=== PATIENT | female | born 1960 | race African-American/Black ===

== ENCOUNTER 2016-07-22 18:20 | Emergency (ER) | payer SELFPAY ==
--- NOTE | 2016-07-22 18:56 | ER Document Report ---
ED Medical Screen (RME) - General Chief Complaint: Back Pain Stated Complaint: BACK PAIN Mode of Arrival: Ambulatory Information source: Patient Notes: Patient complains of pain to right sided chest area for the past 7 months but reports pain and right breast area worsened 2 months ago. Patient reports cough since last month. hx: Fibrocystic breast I have greeted and performed a rapid initial assessment of this patient. A comprehensive ED assessment and evaluation of the patient, analysis of test results and completion of the medical decision making process will be conducted by additional ED providers. Physical Exam - Vital signs Vitals: Temp Pulse Resp BP Pulse Ox 98.1 F 84 20 155/109 H 99 07/22/16 18:36 07/22/16 18:36 07/22/16 18:36 07/22/16 18:36 07/22/16 18:36 - Respiratory Respiratory status: No respiratory distress Chest status: Tender, Pain on movement Breath sounds: Nonproductive cough Course - Vital Signs Vital signs: Temp Pulse Resp BP Pulse Ox 98.1 F 84 20 155/109 H 99 07/22/16 18:36 07/22/16 18:36 07/22/16 18:36 07/22/16 18:36 07/22/16 18:36
--- NOTE | 2016-07-22 19:59 | ER Document Report ---
ED General Pain - General Chief Complaint: Back Pain Stated Complaint: BACK PAIN Time seen by provider: 19:54 Mode of Arrival: Ambulatory Notes: This is a 56-year-old female that presents today with a right upper back right upper arm and right lateral breast pain. She states that the breast pain started 2 months ago. Denies any nipple discharge or erythema or swelling. Patient also states that December 2015 she was picking up her grandson and immediately felt right upper back pain and right upper arm pain. Since then the pain has not worsened but it is intermittent. Pain is worse in the morning after getting up. She denies shortness of breath fever chills nausea vomiting chest pain. TRAVEL OUTSIDE OF THE [place] IN LAST 30 DAYS: No Past Medical History - General Information source: Patient - Social History Smoking Status: Unknown if Ever Smoked Chew tobacco use (# tins/day): Yes Frequency of alcohol use: None Drug Abuse: None Family History: Reviewed & Not Pertinent Patient has suicidal ideation: No Patient has homicidal ideation: No Renal/ Medical History: Denies: Hx Peritoneal Dialysis Review of Systems - Review of Systems Constitutional: denies: Chills, Fever EENT: No symptoms reported Cardiovascular: No symptoms reported Respiratory: No symptoms reported Gastrointestinal: No symptoms reported Genitourinary: No symptoms reported Female Genitourinary: No symptoms reported Musculoskeletal: See HPI Skin: No symptoms reported Hematologic/Lymphatic: No symptoms reported Neurological/Psychological: No symptoms reported Physical Exam - Vital signs Vitals: Temp Pulse Resp BP Pulse Ox 98.1 F 84 20 155/109 H 99 07/22/16 18:36 07/22/16 18:36 07/22/16 18:36 07/22/16 18:36 07/22/16 18:36 - General General appearance: Appears well, Alert In distress: None - HEENT Head: Normocephalic, Atraumatic Eyes: Normal - Respiratory Respiratory status: No respiratory distress Breath sounds: Normal. No: Rales, Rhonchi, Stridor, Wheezing - Cardiovascular Rhythm: Regular Heart sounds: Normal auscultation - Abdominal Inspection: Normal Bowel sounds: Normal Tenderness: Nontender - Back Back: Tender - Right lower scapular region tenderness to deep palpation. No midline or paraspinal tenderness. - Extremities General upper extremity: Normal inspection, Nontender, Normal strength, Normal temperature General lower extremity: Normal inspection, Nontender, Normal strength, Normal temperature - Neurological Cognition: Normal. No: Confused - Psychological Associated symptoms: Normal affect, Normal mood - Skin Skin Temperature: Warm Skin Moisture: Dry Skin Color: Normal Course - Re-evaluation Re-evalutation: 07/22/16 19:57 Patient states that she works in a high stress occupation, and her father is in the hospital at [facility] due to a CVA. Radiograph images results were shared with the patient. She was given multiple opportunities to ask questions. She was advised to follow-up with primary care physician. - Vital Signs Vital signs: Temp Pulse Resp BP Pulse Ox 98.8 F 75 16 158/96 H 75 L 07/22/16 20:17 07/22/16 20:17 07/22/16 20:17 07/22/16 20:17 07/22/16 20:17 Discharge - Discharge Clinical Impression: Cough Condition: Good Disposition: HOME, SELF-CARE Additional Instructions: Return to the emergency department if symptoms worsen such as loss of consciousness, fever, chills, etc. follow-up with primary care physician as soon as possible.High Blood Pressure When your blood pressure was taken today it was elevated. Today's reading was 155/109. Pre-hypertension/Hypertension: The patient has been informed that they may have pre-hypertension or Hypertension based on a blood pressure reading in the emergency department. I recommend that the patient call the primary care provider listed on their dischargge instructions or a physician of their choice this wee to arrage follow up for further evaluation of possible pre- hypertension or Hypertension. Sometimes, stress or illness causes a temporary elevation of your blood pressure. We suggest that you get your blood pressure measured three more times during the next few days to see if this is more than a temporary abnormality. If your blood pressure is greater than 150/90 on each occasion, you must have treatment. Some simple things you can do to help are: If you have blood pressure medicine but aren't using it regularly, start taking it again. Get some aerobic exercise for at least 20 minutes on a daily basis. (See your doctor before beginning a new exercise program.) Eat a low-fat diet. Lose excess weight. Avoid salty foods and avoid adding salt to any of the foods you eat. Avoid diet pills, decongestants, "energizing" herbs, and other medicines that elevate blood pressure. If left untreated, hypertension greatly enhances your risk for developing heart disease and strokes. Please don't ignore this problem. Prescriptions: Albuterol Sulfate [Proair HFA Inhalation Aerosol 8.5 gm MDI] 2 puff IH Q4H PRN # 1 mdi PRN Reason: Methocarbamol [Robaxin 750 mg Tablet] 750 mg PO Q6 PRN #7 tablet PRN Reason: Referrals: [facility] [Provider Group] - Follow up as needed
[2016-07-22 20:19] VITALS: BP 158/96
== END 2016-07-22 20:19 | disposition home or self-care (01) ==
LOC: ER 18:20
DX: R05 Cough (principal); M54.9 Dorsalgia, unspecified; M54.6 Pain in thoracic spine; N64.4 Mastodynia
CPT/HCPCS: 71020; 99283

== ENCOUNTER → 2016-09-18 | Outpatient (CLI) | payer OTHER | LOC: RAD 07:31 | PROVIDERS: ATTEND Family Medicine | DX: R22.31 Localized swelling, mass and lump, right upper limb (principal) | CPT/HCPCS: 71260; 82565 ==

== ENCOUNTER → 2016-10-02 | Outpatient (CLI) | payer OTHER | LOC: RAD 10:39 | PROVIDERS: ATTEND Internal Medicine | DX: Z13.6 Encounter for screening for cardiovascular disorders (principal); C50.411 Malignant neoplasm of upper-outer quadrant of right female breast | CPT/HCPCS: 78472; A9560; Q9969 ==

== ENCOUNTER → 2016-10-05 | Outpatient (CLI) | payer SELFPAY | LOC: RAD 18:58 | PROVIDERS: ATTEND Internal Medicine | DX: C50.411 Malignant neoplasm of upper-outer quadrant of right female breast (principal); C77.3 Secondary and unspecified malignant neoplasm of axilla and upper limb lymph nodes | CPT/HCPCS: 78815; A9552 ==

== ENCOUNTER 2016-10-06 08:51 | Day surgery (SDC) | payer SELFPAY ==
[~2016-10-06 08:51] MED LIST: ACETAMINOPHEN 325 MG TABLET PO PRN; BACITRACIN INJ 50,000 UNIT VIAL IR PRN; CEFAZOLIN 1 GM/D5W RTU 1 GM/50 ML RTUPB IV PRN
[2016-10-06] MEDS ORDERED: OXYCODONE-ACETAMINOPHEN 5-325 MG TABLET ONE (10:49)
[2016-10-06] MEDS ORDERED: LIDOCAINE 0.5% INJ-PF (5 MG/ML) 50 ML SDV ONE (13:16)
[2016-10-06] MEDS ORDERED: MIDAZOLAM 2 MG/2 ML INJ ONE (13:34)
[2016-10-06] MEDS ORDERED: MORPHINE SULFATE 10 MG/ML INJ ONE (13:34)
--- NOTE | 2016-10-06 15:36 | Operative Report ---
Operative Report DATE OF SURGERY: 10/06/16 PREOPERATIVE DIAGNOSIS: Locally advanced right breast carcinoma POSTOPERATIVE DIAGNOSIS: Same OPERATION: 1. Ultrasound directed insertion of single-lumen Wivors-b-Qecc catheter into left internal jugular vein. 2. Interpretation of intraoperative fluoroscopy. 3. Limited central l venacavogram with interpretation SURGEON: BIJAN LEBLANC ANESTHESIA: Local TISSUE REMOVED OR ALTERED: None COMPLICATIONS: None ESTIMATED BLOOD LOSS: scant INTRAOPERATIVE FINDINGS: A below PROCEDURE: The patient was taken from the holding area to the cardiac catheterization lab she was placed in the recumbent position legs elevated arms tucked. The left neck and left chest wall were prepped and draped in sterile fashion Surgical plan surgical time out conducted. Using Ultrasound as a guide, the left neck was anesthetized with 1% lidocaine without epinephrine. A microneedle and wire were threaded into the left internal jugular vein. A suitable site for placement of the port in the subclavian position was chosen. The skin was again anesthetized with 1% lidocaine without epinephrine. A 3-1/2 cm incision was made in the skin electrocautery and blunt dissection, a port pocket was developed. The single lumen catheter was then tunneled between the 2 incisions after adequately anesthetizing the subcutaneous tissue with lidocaine. There is trimmed the appropriate length, then attached to the port along with the small plastic ring. Micro-wire was then switched to a 0.035 wire using to the introducer sheath. We then threaded the dilator introducer sheath over the larger wire, dilator and wire out, the threaded the single lumen catheter into the left internal jugular vein. Strip away sheath was removed leaving the catheter with the tip right at the superior vena cava junction. The catheter by fluoroscopic analysis. We then shot a full contrast, 5 mL venogram which demonstrated positioning of the catheter with rapid reflux into the atrium. The port was flushed with dilute heparinized saline, then with 3-0 Vicryl benzoin and Steri-Strips. Portable upright chest x-ray pending at time of dictation.
[2016-10-06 16:49] VITALS: BP 137/89
--- NOTE | 2016-10-09 07:38 | DISCHARGE SUMMARY E ---
Discharge Summary NAME: VALORIE MADSEN : 1960 AGE: 56Y ADMITTED: 10/06/2016 DISCHARGED: 10/06/2016 SUMMARY OF HOSPITALIZATION: The patient is a 56-year-old female with a history of metastatic inflammatory breast cancer who was brought to the hospital for port placement. The procedure was performed by Dr. Mckinney. She underwent left subclavian Infusaport catheter placement into the left internal jugular vein. She tolerated the procedure well without complications. FINAL DIAGNOSIS: Metastatic breast carcinoma status post left-sided port placement by Dr. Mckinney. DISPOSITION: The patient will be discharged home in the care of her family. Follow up with the Oncology team as previously scheduled. She may use the port. DICTATING PHYSICIAN: BIJAN MCKINNEY M.D. [id number] PHY#: [id number] ID: [id number] JOB#: [id number] ACCT: [id number] cc:BIJAN MCKINNEY M.D. >
== END 2016-10-06 17:00 | disposition home or self-care (01) ==
LOC: CCL 08:51
PROVIDERS: ATTEND Surgery
PROC: 05H633Z Insertion of Infusion Device into Left Subclavian Vein, Percutaneous Approach (ICD-10-PCS; principal; 2016-10-06)
DX: C50.411 Malignant neoplasm of upper-outer quadrant of right female breast (principal); E66.9 Obesity, unspecified; Z88.5 Allergy status to narcotic agent; Z68.29 Body mass index [BMI] 29.0-29.9, adult
CPT/HCPCS: 36561; 76937; 77001; C1788; C1752; Q9967; J2250; J3490 ×2; J0690; J2270; J1644

== ENCOUNTER 2016-10-09 08:06 | Outpatient (CLI) | payer SELFPAY ==
[~2016-10-09 08:06] MED LIST changes: -ACETAMINOPHEN 325 MG TABLET PO PRN; -BACITRACIN INJ 50,000 UNIT VIAL IR PRN; -CEFAZOLIN 1 GM/D5W RTU 1 GM/50 ML RTUPB IV PRN; +CYCLOPHOSPHAMIDE IV PRN; +DISPOSABLE IV PRN; +DOXORUBICIN HCL IV PRN; +FOSAPREPITANT DIMEGLUMINE 150 MG in NORMAL SALINE 150 ML IV PRN; +NORMAL SALINE 500 ML IV PRN; +NORMAL SALINE IV PRN; +ONDANSETRON HCL/PF 16 MG, DEXAMETHASONE SOD PHOSPHATE 10 MG in NORMAL SALINE 50 ML IV PRN
[2016-10-09 09:19] VITALS: BP 117/71
== END 2016-10-09 11:35 | disposition home or self-care (01) ==
LOC: II 08:06 → 5TH 08:08 → II 11:35
PROVIDERS: ATTEND Internal Medicine
PROC: 3E04305 Introduction of Other Antineoplastic into Central Vein, Percutaneous Approach (ICD-10-PCS; principal; 2016-10-09)
PROC: 3E04305 Introduction of Other Antineoplastic into Central Vein, Percutaneous Approach (ICD-10-PCS; 2016-10-09)
PROC: 3E043GC Introduction of Other Therapeutic Substance into Central Vein, Percutaneous Approach (ICD-10-PCS; 2016-10-09)
PROC: 3E043GC Introduction of Other Therapeutic Substance into Central Vein, Percutaneous Approach (ICD-10-PCS; 2016-10-09)
DX: C50.411 Malignant neoplasm of upper-outer quadrant of right female breast (principal); Z51.11 Encounter for antineoplastic chemotherapy
CPT/HCPCS: 96411; 96413; 96367; J9070; J9000; J2405; J7050; J3490; J1100; J1453; 96360; 96375; 96409

== ENCOUNTER 2016-10-10 11:40 | Outpatient (CLI) | payer SELFPAY ==
[~2016-10-10 11:40] MED LIST changes: -CYCLOPHOSPHAMIDE IV PRN; -DISPOSABLE IV PRN; -DOXORUBICIN HCL IV PRN; -FOSAPREPITANT DIMEGLUMINE 150 MG in NORMAL SALINE 150 ML IV PRN; -NORMAL SALINE 500 ML IV PRN; -NORMAL SALINE IV PRN; -ONDANSETRON HCL/PF 16 MG, DEXAMETHASONE SOD PHOSPHATE 10 MG in NORMAL SALINE 50 ML IV PRN; +PEGFILGRASTIM INJ 6 MG/0.6 ML DISP.SYRIN SUBCUT PRN
== END 2016-10-10 11:58 | disposition home or self-care (01) ==
LOC: II 11:40 → 5TH 11:45 → II 11:58
PROVIDERS: ATTEND Internal Medicine
PROC: 3E023GC Introduction of Other Therapeutic Substance into Muscle, Percutaneous Approach (ICD-10-PCS; principal; 2016-10-10)
DX: C50.411 Malignant neoplasm of upper-outer quadrant of right female breast (principal)
CPT/HCPCS: 96372; J2505

== ENCOUNTER 2016-10-18 09:58 | Emergency (ER) | payer OTHER ==
[2016-10-18] MEDS ORDERED: ASPIRIN 81 MG TABLET, CHEWABLE PO ONE (10:00)
--- NOTE | 2016-10-18 10:07 | ER Document Report ---
ED General - General Stated Complaint: CHEST PAIN Mode of Arrival: Medic Information source: Patient Notes: Patient presents emergency department with complaints of chest pressure with shortness of breath that started this morning. Patient reports she felt a little bit of pressure earlier today at work at [employer]. 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 She reports she became short of breath and the pressure went into her throat. She denies trauma, denies fever, nausea vomiting diarrhea. She denies past medical history of cardiac disease or high blood pressure. Patient does reports she was diagnosed with breast cancer on September 19. She had her first chemotherapy on October 09. She reports the cancer has spread up into her right rib and possibly lungs. She denies family history of cardiac disease. She reports pressure is almost gone. TRAVEL OUTSIDE OF THE [place] IN LAST 30 DAYS: No - HPI Onset: This morning Onset/Duration: Sudden Quality of pain: Pressure Severity: Mild Pain Level: 1 Associated symptoms: Shortness of breath Exacerbated by: Denies Relieved by: Denies Similar symptoms previously: No Recently seen / treated by doctor: No - Related Data Allergies/Adverse Reactions: codeine Allergy (Verified 10/03/16 15:13) Home Medications: Current Home Medications Amlodipine Besylate 10 mg PO DAILY 10/18/16 [History] Cephalexin Monohydrate [Keflex 500 mg Capsule] 500 mg PO TID 10/18/16 [History] Oxycodone HCl/Acetaminophen [Percocet 5-325 mg Tablet] 1 tab PO Q6H PRN [History] Promethazine HCl 25 mg PO Q6H PRN 10/18/16 [History] Past Medical History - General Information source: Patient - Social History Smoking Status: Unknown if Ever Smoked Cigarette use (# per day): No Frequency of alcohol use: None Drug Abuse: None Occupation: [employer] Family History: Malignancy - mom-pancreatic cancer, cousins breast cancers Patient has suicidal ideation: No Patient has homicidal ideation: No - Past Medical History Cardiac Medical History: Reports: Hx Hypertension Denies: Hx Coronary Artery Disease, Hx Heart Attack Pulmonary Medical History: Denies: Hx Asthma, Hx Bronchitis, Hx COPD, Hx Pneumonia Neurological Medical History: Denies: Hx Cerebrovascular Accident, Hx Seizures Renal/ Medical History: Denies: Hx Peritoneal Dialysis Malignancy Medical History: Reports: Hx Breast Cancer Musculoskeltal Medical History: Denies Hx Arthritis Past Surgical History: Reports: Hx Tubal Ligation - Immunizations Hx Diphtheria, Pertussis, Tetanus Vaccination: Yes Review of Systems - Review of Systems Notes: Review HPI for review of systems., All other systems negative Physical Exam - Vital signs Vitals: Pulse Ox 97 10/18/16 10:00 - Notes Notes: PHYSICAL EXAMINATION: GENERAL: Well-appearing and in no acute distress HEAD: Atraumatic, normocephalic. EYES: Pupils equal round extraocular movements intact, sclera anicteric, conjunctiva are normal. ENT: nares patent, oropharynx clear without exudates. Moist mucous membranes. NECK: Normal range of motion, supple without lymphadenopathy LUNGS: CTAB and equal. No wheezes rales or rhonchi. HEART: Regular rate and rhythm without murmurs ABDOMEN: Soft, no tenderness. No guarding, no rebound EXTREMITIES: Normal range of motion, no pitting edema. No cyanosis. NEUROLOGICAL: Cranial nerves grossly intact. Normal sensory/motor PSYCH: Normal mood, normal affect. SKIN: Warm, Dry, normal turgor, no rashes or lesions noted Course - Re-evaluation Re-evalutation: 10/18/16 11:13 Patient updated on plan of care pending labs she verbalized understanding. 10/18/16 11:15 WBC 2.9. Patient placed on reverse contact precautions. Consulted Dr Urena, he advised CTA for further evaluation of cp, mets. Pt updated on plan 10/18/16 13:[address] Lizandro jacobson with resultant CTA patient's labs. He reports this is expected. He reports patient had first round of chemotherapy with Neulasta on October 09 and typical 7-10 days afterwards patient will develop substernal chest pain. He advises discharge if second set of enzymes are negative. He also requested us to prescribe her with hydrocodone for pain. 10/18/16 15:41 Patient instructed on all she with Dr. Armas, labs, plan of care. Patient reports she feels fine and ready go home. Patient was instructed on the importance of follow-up with a primary care provider and Dr. Armas this week. - Vital Signs Vital signs: Temp Pulse Resp BP Pulse Ox 98.1 F 93 20 104/69 97 10/18/16 10:24 10/18/16 10:24 10/18/16 15:19 10/18/16 15:19 10/18/16 15:19 - Laboratory Result Diagrams: 10/18/16 10:20 10/18/16 10:20 Laboratory results interpreted by me: 10/18/16 10/18/16 10:20 10:20 WBC 2.5 L RBC 3.65 L Hgb 11.0 L Hct 31.8 L Seg Neuts % (Manual) 32 L Lymphocytes % (Manual) 46 H Eosinophils % (Manual) 7 H Abs Neuts (Manual) 0.9 L Potassium 3.1 L Glucose 123 H - Diagnostic Test Radiology reviewed: Image reviewed, Reports reviewed - RAD/ CHEST SINGLE VIEW IMPRESSION: No acute findings Diagnostic report text EXAM DESCRIPTION: CHEST SINGLE VIEW COMPLETED DATE/TIME: 10/18/2016 11:05 am REASON FOR STUDY: cp COMPARISON: CT chest 09/18/2016 EXAM PARAMETERS: NUMBER OF VIEWS: One view. TECHNIQUE: Single frontal radiographic view of the chest acquired. RADIATION DOSE: NA LIMITATIONS: None. FINDINGS: LUNGS AND PLEURA: No opacities, masses or pneumothorax. No pleural effusion. MEDIASTINUM AND HILAR STRUCTURES: No masses. Contour normal. HEART AND VASCULAR STRUCTURES: Heart normal in size. Normal vasculature. BONES: No acute findings. HARDWARE: Left-sided permanent central line tip superior vena cava. OTHER: No other significant finding. TECHNICAL DOCUMENTATION: JOB ID: [id number] RAD/CHEST SINGLE VIEW IMPRESSION: No acute findings - EKG Interpretation by Me EKG shows normal: Sinus rhythm Rate: Normal Discharge - Discharge Clinical Impression: Chest pain Condition: Stable Disposition: HOME, SELF-CARE Instructions: Chest Pain of Unclear Cause ([facility]), Oral Narcotic Medication ([facility]) , Family Physicians / Practices Additional Instructions: *You have been evaluated for chest pain *Take medication as prescribed for pain *Follow up with a primary care provider within one week *Follow up with Dr Armas within one week *Return to ED for worsening condition, changes, needs *Return to ED if not better in 24 hours Prescriptions: Hydrocodone/Acetaminophen [Horicon 5-325 Tablet] 1 each PO QID #15 tablet Forms: Return to Work Referrals: SUJATHA BURNS MD [Primary Care Provider] - Follow up in 3-5 days
[2016-10-18 10:36] LABS: HEMATOCRIT 31.8 % (36.0-47.0); HGB HCT DIFFERENCE 1.2; MEAN CORPUSCULAR HEMOGLOBIN 30.2 pg (27.0-33.4); MEAN CORPUSCULAR HGB CONC 34.6 g/dL (32.0-36.0); MEAN CORPUSCULAR VOLUME 87 fl (80-97); RED BLOOD COUNT 3.65 10^6/uL (3.72-5.28); RED CELL DISTRIBUTION WIDTH 13.8 % (11.5-14.0); WHITE BLOOD COUNT 2.5 10^3/uL (4.0-10.5)
[2016-10-18 10:54] LABS: ALANINE AMINOTRANSFERASE 23 U/L (9-52); ALKALINE PHOSPHATASE 94 U/L (38-126); ANION GAP 15 (5-19); ASPARTATE AMINO TRANSFERASE 17 U/L (14-36); BILIRUBIN,DIRECT 0.2 mg/dL (0.0-0.4); BILIRUBIN,TOTAL 0.3 mg/dL (0.2-1.3); BLOOD UREA NITROGEN 13 mg/dL (7-20); CALCIUM 9.8 mg/dL (8.4-10.2); CARBON DIOXIDE 23 mmol/L (22-30); CHLORIDE 105 mmol/L (98-107); CREATINE KINASE 79 U/L (30-135); CREATININE RESULT 0.65 mg/dL (0.52-1.25); GLUCOSE 123 mg/dL (75-110); POTASSIUM 3.1 mmol/L (3.6-5.0); SODIUM 143.3 mmol/L (137-145); TOTAL PROTEIN 7.4 g/dL (6.3-8.2)
[2016-10-18 11:01] LABS: BAND NEUTROPHILS % (MANUAL) 5 % (3-5); BASOPHILS % (MANUAL) 0 % (0-2); EOSINOPHILS % (MANUAL) 7 % (0-6); LYMPHOCYTES % (MANUAL) 46 % (13-45); TOTAL CELLS COUNTED 100
[2016-10-18 11:02] LABS: TOXIC GRANULATION SLIGHT
[2016-10-18 11:03] LABS: HYPOCHROMASIA SLIGHT; POLYCHROMASIA SLIGHT; ROULEAUX 1+; TOXIC VACUOLATION PRESENT
[2016-10-18 11:08] LABS: CREATINE KINASE MB < 0.22 ng/mL (<4.55); TROPONIN I < 0.012 ng/mL
[2016-10-18 15:21] VITALS: BP 104/69
--- NOTE | 2016-10-18 18:01 | EKG REPORT ---
SEVERITY:- NORMAL ECG - SINUS RHYTHM : Confirmed by: Steven Gusman MD 18-Oct-2016 18:00:52
== END 2016-10-18 15:56 | disposition home or self-care (01) ==
LOC: ER 09:58
DX: R07.9 Chest pain, unspecified (principal); R06.02 Shortness of breath; C50.919 Malignant neoplasm of unspecified site of unspecified female breast; Z79.899 Other long term (current) drug therapy
CPT/HCPCS: 36415; 71010; 71275; 80053; 82550; 82553; 84484; 85025; 93005; 93010; 99285

== ENCOUNTER 2016-10-30 10:01 | Outpatient (CLI) | payer MEDICAID, OTHER ==
[~2016-10-30 10:01] MED LIST changes: +CYCLOPHOSPHAMIDE IV PRN; +DISPOSABLE IV PRN; +DOXORUBICIN HCL IV PRN; +FOSAPREPITANT DIMEGLUMINE 150 MG in NORMAL SALINE 150 ML IV PRN; +NORMAL SALINE 500 ML IV PRN; +NORMAL SALINE IV PRN; +ONDANSETRON HCL/PF 16 MG, DEXAMETHASONE SOD PHOSPHATE 10 MG in NORMAL SALINE 50 ML IV PRN; -PEGFILGRASTIM INJ 6 MG/0.6 ML DISP.SYRIN SUBCUT PRN
[2016-10-30 10:17] VITALS: BP 133/116
== END 2016-10-30 12:58 | disposition home or self-care (01) ==
LOC: II 10:01 → 5TH 10:08 → II 12:58
PROVIDERS: ATTEND Internal Medicine
PROC: 3E04305 Introduction of Other Antineoplastic into Central Vein, Percutaneous Approach (ICD-10-PCS; principal; 2016-10-30)
PROC: 3E043GC Introduction of Other Therapeutic Substance into Central Vein, Percutaneous Approach (ICD-10-PCS; 2016-10-30)
DX: Z51.11 Encounter for antineoplastic chemotherapy (principal); C50.411 Malignant neoplasm of upper-outer quadrant of right female breast
CPT/HCPCS: 96413; 96367; 96361; 96417; J9070; J9000; J2405; J7050; J3490; J1100; J1453; 96360; 96374; 96411

== ENCOUNTER → 2016-10-30 | Outpatient (CLI) | payer MEDICAID ==
[2016-10-30 11:16] LABS: ALANINE AMINOTRANSFERASE 26 U/L (9-52); ALKALINE PHOSPHATASE 97 U/L (38-126); ANION GAP 14 (5-19); ASPARTATE AMINO TRANSFERASE 21 U/L (14-36); BILIRUBIN,DIRECT 0.4 mg/dL (0.0-0.4); BILIRUBIN,TOTAL 0.6 mg/dL (0.2-1.3); BLOOD UREA NITROGEN 9 mg/dL (7-20); CALCIUM 9.9 mg/dL (8.4-10.2); CARBON DIOXIDE 26 mmol/L (22-30); CHLORIDE 99 mmol/L (98-107); CREATININE RESULT 0.77 mg/dL (0.52-1.25); GLUCOSE 177 mg/dL (75-110); POTASSIUM 4.6 mmol/L (3.6-5.0); TOTAL PROTEIN 7.9 g/dL (6.3-8.2)
== END ==
LOC: LAB 10:51
PROVIDERS: ATTEND Internal Medicine
DX: C50.411 Malignant neoplasm of upper-outer quadrant of right female breast (principal)
CPT/HCPCS: 80053

== ENCOUNTER 2016-10-31 12:37 | Outpatient (CLI) | payer OTHER ==
[~2016-10-31 12:37] MED LIST changes: -CYCLOPHOSPHAMIDE IV PRN; -DISPOSABLE IV PRN; -DOXORUBICIN HCL IV PRN; -FOSAPREPITANT DIMEGLUMINE 150 MG in NORMAL SALINE 150 ML IV PRN; -NORMAL SALINE 500 ML IV PRN; -NORMAL SALINE IV PRN; -ONDANSETRON HCL/PF 16 MG, DEXAMETHASONE SOD PHOSPHATE 10 MG in NORMAL SALINE 50 ML IV PRN; +PEGFILGRASTIM INJ 6 MG/0.6 ML DISP.SYRIN SUBCUT PRN
[2016-10-31 12:50] VITALS: BP 122/78
== END 2016-10-31 12:53 | disposition home or self-care (01) ==
LOC: II 12:37
PROVIDERS: ATTEND Internal Medicine
PROC: 3E013GC Introduction of Other Therapeutic Substance into Subcutaneous Tissue, Percutaneous Approach (ICD-10-PCS; principal; 2016-10-31)
DX: Z76.89 Persons encountering health services in other specified circumstances (principal); C50.411 Malignant neoplasm of upper-outer quadrant of right female breast
CPT/HCPCS: 96372; J2505

== ENCOUNTER 2016-11-20 09:23 | Outpatient (CLI) | payer MEDICAID ==
[~2016-11-20 09:23] MED LIST changes: +CYCLOPHOSPHAMIDE IV PRN; +DISPOSABLE IV PRN; +DOXORUBICIN HCL IV PRN; +FOSAPREPITANT DIMEGLUMINE 150 MG in NORMAL SALINE 150 ML IV PRN; +NORMAL SALINE 500 ML IV PRN; +NORMAL SALINE IV PRN; +ONDANSETRON HCL/PF 16 MG, DEXAMETHASONE SOD PHOSPHATE 10 MG in NORMAL SALINE 50 ML IV PRN; -PEGFILGRASTIM INJ 6 MG/0.6 ML DISP.SYRIN SUBCUT PRN
[2016-11-20 09:44] VITALS: BP 114/70
== END 2016-11-20 13:20 | disposition home or self-care (01) ==
LOC: II 09:23 → 5TH 10:03 → II 13:20
PROVIDERS: ATTEND Internal Medicine
PROC: 3E043GC Introduction of Other Therapeutic Substance into Central Vein, Percutaneous Approach (ICD-10-PCS; principal; 2016-11-20)
PROC: 3E04305 Introduction of Other Antineoplastic into Central Vein, Percutaneous Approach (ICD-10-PCS; 2016-11-20)
DX: Z51.11 Encounter for antineoplastic chemotherapy (principal); C50.411 Malignant neoplasm of upper-outer quadrant of right female breast
CPT/HCPCS: 96409; 96413; 96367; 96375; 36598; J9070; J9000; J2405; J7050; J3490; J1100; J1453; 96411

== ENCOUNTER 2016-11-21 13:01 | Outpatient (CLI) | payer MEDICAID ==
[~2016-11-21 13:01] MED LIST changes: -CYCLOPHOSPHAMIDE IV PRN; -DISPOSABLE IV PRN; -DOXORUBICIN HCL IV PRN; -FOSAPREPITANT DIMEGLUMINE 150 MG in NORMAL SALINE 150 ML IV PRN; -NORMAL SALINE 500 ML IV PRN; -NORMAL SALINE IV PRN; -ONDANSETRON HCL/PF 16 MG, DEXAMETHASONE SOD PHOSPHATE 10 MG in NORMAL SALINE 50 ML IV PRN; +PEGFILGRASTIM INJ 6 MG/0.6 ML DISP.SYRIN SUBCUT PRN
== END 2016-11-21 13:25 | disposition home or self-care (01) ==
LOC: II 13:01 → 5TH 13:06 → II 13:25
PROVIDERS: ATTEND Internal Medicine
PROC: 3E013GC Introduction of Other Therapeutic Substance into Subcutaneous Tissue, Percutaneous Approach (ICD-10-PCS; principal; 2016-11-21)
DX: Z76.89 Persons encountering health services in other specified circumstances (principal); C50.411 Malignant neoplasm of upper-outer quadrant of right female breast
CPT/HCPCS: 96372; J2505

== ENCOUNTER → 2017-03-31 | Outpatient (CLI) | payer MEDICAID ==
--- NOTE | 2017-03-31 13:08 | RADIOLOGY REPORT (SQ) ---
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 PET scan dated 10/05/2016. TECHNIQUE: CT scan of the chest performed using helical scanning technique with dynamic intravenous contrast injection. Images reviewed with lung, soft tissue and bone windows. Reconstructed coronal and sagittal MPR images reviewed. All images stored on PACS. All CT scanners at this facility use dose modulation, iterative reconstruction, and/or weight based d osing when appropriate to reduce radiation dose to as low as reasonably achievable (ALARA). [facility]: Dose Right [facility]: CareDose [facility]: Dose Right [facility]: Teradose 4D [facility]: [employer] CONTRAST TYPE AND DOSE: 91 mL Isovue 370- low osmolar. RENAL FUNCTION: BUN 11 creatinine 0.8. RADIATION DOSE: . LIMITATIONS: None. FINDINGS: LUNGS AND PLEURA: Patchy parenchymal changes in the right upper lobe with interstitial pro minence and hazy ground-glass opacities. Interval development of moderate right pleural effusion. L eft lung relatively clear. HILAR AND MEDIASTINAL STRUCTURES: Improvement in previously seen hilar and mediastinal adenopathy. P reviously seen enlarged lymph nodes have decreased in size and most measure less than 1 cm. Largest lymph node in the right hilum measures 1 cm. HEART AND VASCULAR STRUCTURES: No aneurysm or dissection. No central pulmonary emboli. No pericardi al effusion. HARDWARE: Vascular access port. UPPER ABDOMEN: See separate report of the CT of the abdomen. THYROID AND OTHER SOFT TISSUES: Right axillary adenopathy is improved. The largest lymph node curren tly measures 4.2 x 5.2 cm with prior measurements of 3.7 x 5.7 cm. Lymph node located posterior to t he large lymph node now measures 7 mm with prior measurement of 12 x 18 mm. Lymph node located later al to the large lymph node measures 13 mm 1.3 cm with previous measurement of 2.4 x 2.6 cm. BONES: Irregular sclerotic appearance of the anterior right 1st rib. OTHER: Again seen is asymmetric enlargement and increased density in the right breast with skin thick ening. IMPRESSION: 1. INTERVAL IMPROVEMENT IN THE HILAR AND MEDIASTINAL ADENOPATHY AND INTERVAL IMPROVEMENT IN THE RIGHT AXILLARY ADENOPATHY. 2. INTERVAL DEVELOPMENT OF MODERATE RIGHT PLEURAL EFFUSION. PATCHY PARENCHYMAL OPACITIES IN THE RIGH T UPPER LOBE MAY REPRESENT RADIATION CHANGE IF THE PATIENT HAS RECEIVED RADIATION THERAPY. OTHER POS SIBILITIES INCLUDE PNEUMONITIS OR INFECTION. 3. IRREGULAR SCLEROTIC APPEARANCE OF THE ANTERIOR RIGHT 1ST RIB SUSPICIOUS FOR METASTATIC INVOLVEMENT . 4. NO OTHER SIGNIFICANT FINDINGS. TECHNICAL DOCUMENTATION: JOB ID: [id number] Quality ID # [id number]: Final reports with documentation of one or more dose reduction techniques (e.g., Au tomated exposure control, adjustment of the mA and/or kV according to patient size, use of iterative reconstruction technique) 2010 [employer]- All Rights Reserved
--- NOTE | 2017-03-31 13:11 | RADIOLOGY REPORT (SQ) ---
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 TECHNIQUE: CT scan of the abdomen and pelvis performed using helical scanning technique with dynamic intravenous contrast injection. No oral contrast. Images reviewed with lung, soft tissue, and bone windows. Reconstructed coronal and sagittal MPR images reviewed. Delayed images for evaluation of the urinary system also acquired. All images stored on PACS. All CT scanners at this facility use dose modulation, iterative reconstruction, and/or weight based d osing when appropriate to reduce radiation dose to as low as reasonably achievable (ALARA). [facility]: Dose Right [facility]: CareDose [facility]: Dose Right [facility]: Teradose 4D [facility]: [employer] CONTRAST TYPE AND DOSE: contrast/concentration: Isovue 370.00 mg/ml; Total Contrast Delivered: 91.0 ml; Total Saline Delivered: 70.0 ml RENAL FUNCTION: BUN 11 creatinine 0.8. RADIATION DOSE: Up-to-date CT equipment and radiation dose reduction techniques were employed. CTDIv ol: 9.4 - 10.1 mGy. DLP: 1428 mGy-cm.. LIMITATIONS: None. FINDINGS: LOWER CHEST: See separate report of the CT of the chest. LIVER: Normal size. No masses. No dilated ducts. SPLEEN: Normal size. No focal lesions. PANCREAS: No masses. No significant calcifications. No adjacent inflammation or peripancreatic fluid collections. Pancreatic duct not dilated. GALLBLADDER: No identified stones by CT criteria. No inflammatory changes to suggest cholecystitis. ADRENAL GLANDS: No significant masses or asymmetry. RIGHT KIDNEY AND URETER: No solid masses. No significant calcifications. No hydronephrosis or hyd roureter. LEFT KIDNEY AND URETER: No solid masses. No significant calcifications. No hydronephrosis or hydr oureter. AORTA AND VESSELS: No aneurysm. No dissection. Renal arteries, SMA, celiac without stenosis. RETROPERITONEUM: No retroperitoneal adenopathy, hemorrhage or masses. BOWEL AND PERITONEAL CAVITY: No masses or inflammatory changes. No free fluid or peritoneal masses. APPENDIX: Not visualized. PELVIS: Enlarged uterus with several large heterogenous partially calcified masses. No free fluid. N ormal bladder. ABDOMINAL WALL: No masses. No hernias. BONES: No significant or acute findings. OTHER: No other significant finding. IMPRESSION: UTERINE FIBROIDS. NO OTHER SIGNIFICANT OR ACUTE FINDING IN THE ABDOMEN OR PELVIS ON CT SCAN WITH IV CONTRAST. TECHNICAL DOCUMENTATION: JOB ID: [id number] Quality ID # [id number]: Final reports with documentation of one or more dose reduction techniques (e.g., Au tomated exposure control, adjustment of the mA and/or kV according to patient size, use of iterative reconstruction technique) 2010 [employer]- All Rights Reserved
--- NOTE | 2017-03-31 14:52 | RADIOLOGY REPORT (SQ) ---
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 The route of agent administration: Intravenous. ADDITIONAL DRUGS AND DOSES: None. TECHNIQUE: Routine delayed images at 3 hours post radionuclide injection acquired of the bony skelet on including anterior and posterior whole-body projections and additional focused images as needed. LIMITATIONS: None. FINDINGS: BONES: There is focal increased uptake region the right 1st rib. This corresponds with th e skull irregular lesion in right 1st rib on CT. There is focal uptake in the region of the ethmoid sinuses. KIDNEYS: Symmetric excretion without obstruction. OTHER: No other significant finding. IMPRESSION: There is a uptake in the right 1st rib which, together with the appearance on CT, is con cerning for metastasis. COMMENT: Quality measure 147: The bone scan is compared with a CT of this same date. TECHNICAL DOCUMENTATION: JOB ID: [id number] [employer]- All Rights Reserved
== END ==
LOC: RAD 09:43
PROVIDERS: ATTEND Internal Medicine
DX: C50.411 Malignant neoplasm of upper-outer quadrant of right female breast (principal); J90 Pleural effusion, not elsewhere classified
CPT/HCPCS: 78306; 71260; 74177; A9561; Q9969